=== PATIENT | male | born 2005 | race Caucasian/White ===

== ENCOUNTER 2025-01-03 08:52 | Emergency (ER) | payer OTHER, SELFPAY ==
--- NOTE | ~2025-01-03 | XR_ITS ---
CLINICAL HISTORY: pain rolled ankle 3 view left ankle Comparison: None Findings: No acute fractures or dislocations. No significant loss of joint space, osteophytes, or erosions. No ankle effusion. No radiopaque foreign body. IMPRESSION: 1. No acute findings. This document has been electronically signed by: Judd Rincon MD on 01/03/2025 09:43:38
[2025-01-03 08:56] VITALS: BP 108/31; PULSE 85; RESP 16; TEMP 36.2; O2SAT 100; BMI 26.6
--- NOTE | 2025-01-03 09:44 | PC.NURSE ---
patient a&ox3, lle pain 01/26, pt states he took ibuprofen approx 730 am, xray performed- awaiting radiology results and to be seen by provider, plan of care ongoing
--- NOTE | 2025-01-03 10:03 | ED.LOWEXIN ---
HPI - Extremity Injury (Lower) General Chief Complaint: Extremity Injury, Lower Stated Complaint: work inj - ankle inj Time Seen by Provider: 01/03/25 09:28 Source: patient Mode of arrival: ambulatory Limitations: no limitations History of Present Illness ED Provider: Destini Sheridan NP HPI Narrative: patient is a 19-year-old male who presents emergency department for evaluation. He reports that he was in the middle of a 3 mile run for [employer] training when he accidentally rolled the left ankle reports that he still had approximately 1.5 miles of the run to continue. He did complete the run accordingly but was having pain to the ankle to the bilateral malleolus as well as the anterior ankle. He states that since resting the pain in the anterior ankle has subsided but still has pain to the bilateral malleolus. No associated numbness tingling or cold sensation. Denies prior injury to this ankle. Related Data Allergies Allergy/AdvReac Type Severity Reaction Status Date / Time No Known Allergies Allergy Verified 01/03/25 08:58 Review of Systems Review of Systems: Yes all other systems are reviewed and are negative [facility] Past Medical History Attestation statement: The following information was validated with the patient. Source: old records reviewed Social History Social History Smoked in Last 30 Days: No Use of substances other than those prescribed or required for medical reasons: No Advance Directives: No Advance Directives Information Provided: Yes Physical Exam Vital Signs: Vital Signs: Last Vital Signs Temp 97.1 F 01/03/25 08:56 Pulse 85 01/03/25 08:56 Resp 16 01/03/25 08:56 BP 108/31 L 01/03/25 08:56 Pulse Ox 100 01/03/25 08:56 O2 Del Method Room Air 01/03/25 08:56 BMI result Body Mass Index 26.6 Appearance: Alert.?Oriented to person, place and time. No acute distress.?Normal affect. CVS: Heart sounds normal. Normal heart rate and rhythm.? Pulses normal.?? Respiratory: No respiratory distress.? Lung sounds clear to auscultation bilaterally??? Skin: Skin warm and dry.? Normal skin color.? ? Extremities: No lower extremity edema.? No calf ttp. No deformity. 2+ DP/PT pulse Neuro: Moves all extremities spontaneously. Sensation intact bilaterally. Ambulates with antalgic gait. Has Aircast as well as crutches that he brought with him to the emergency department Medical Decision Making Medical Decision Making MDM Narrative: patient is a 19 old male who presents emergency department for evaluation of traumatic left ankle pain as per HPI. Differential including fracture, dislocation, sprain, strains of XR was obtained no acute osseous abnormality to favor back for/dislocation. Extremities neurovascularly intact distally. Symptoms at this time I suspect most consistent with a sprain. He arrived to the emergency department with an Aircast as well as crutches, advised continued usage of this, conservative treatment over the next few days including ice for 10-15 minutes 3-4 times daily, acetaminophen/ Tylenol for pain, elevation, outpatient follow-up through primary care provider. All questions answered. Differential Diagnosis Differential Diagnoses: The differential diagnosis associated with the presentation includes ( See narrative above) Independent Interpretation I performed an independent interpretation of an: Plain X-Ray ( see narrative above) Radiology Impression Discussion of test interpretation with radiology: I have reviewed the radiologist's reading. Radiologist Impression: 3 view left ankle Comparison: None Findings: No acute fractures or dislocations. No significant loss of joint space, osteophytes, or erosions. No ankle effusion. No radiopaque foreign body. IMPRESSION: 1. No acute findings. Prescription Management I considered prescription management with: Pain Medication Discharge Plan Discharge Clinical Impression: Ankle sprain and strain Patient Disposition: Home, Self-Care Instructions: Ankle Sprain (DC) Additional Instructions: use the Aircast and crutches to take weight off of the ankle. Be sure to rest particularly over the next 3 days, if you continue to have pain refrain from excessive usage and/or running. Be sure to apply ice for 10-15 minutes 3-4 times daily. You can take ibuprofen 200 mg, 3 tablets (600mg) every 6-8 hours as needed for pain, in addition to Tylenol 500 mg, 2 tablets (1,000mg) every 4-6 hours as needed for pain, but not to exceed 3 doses daily (3,000mg).? Follow-up with your primary care doctor. Referrals: Physician,Nonstaff [Primary Care Provider] - Print Language: Citizen [place]
[2025-01-03 10:32] VITALS: BP 106/46; PULSE 78; RESP 16; TEMP 36.7; O2SAT 100
== END 2025-01-03 10:33 | disposition home or self-care (01) ==
PROVIDERS: Emergency Provider Emergency Medicine
DX: S93.402A Sprain of unspecified ligament of left ankle, initial encounter (principal); S96.912A Strain of unspecified muscle and tendon at ankle and foot level, left foot, initial encounter; X50.1XXA Overexertion from prolonged static or awkward postures, initial encounter; M25.572 Pain in left ankle and joints of left foot; Y93.02 Activity, running; Y92.138 Other place on military base as the place of occurrence of the external cause; Y99.1 Military activity
CPT/HCPCS: 73610; 99283

== ENCOUNTER → 2025-01-03 09:05 | Outpatient (BNV) | payer OTHER, SELFPAY | PROVIDERS: Visit Provider Radiology Vascular & Interventional Radiology | DX: M25.572 Pain in left ankle and joints of left foot (principal) | CPT/HCPCS: 73610 ==